=== PATIENT | female | born 1955 | race Caucasian/White ===

== ENCOUNTER → 2017-08-29 | Outpatient (CLI) | payer BC | END | disposition home or self-care (01) | LOC: GMAM 11:03 | PROVIDERS: ATTEND Family Medicine | DX: E03.9 Hypothyroidism, unspecified (principal); E53.8 Deficiency of other specified B group vitamins ==

== ENCOUNTER → 2017-09-08 | Outpatient (CLI) | payer BC | END | disposition home or self-care (01) | LOC: MAMMO 14:20 | PROVIDERS: ATTEND Family Medicine | DX: Z12.31 Encounter for screening mammogram for malignant neoplasm of breast (principal) | CPT/HCPCS: 77063; G0202 ==

== ENCOUNTER → 2017-09-27 | Outpatient (CLI) | payer BC ==
--- NOTE | 2017-09-29 08:07 | US ---
EXAM DESCRIPTION: Breast,Right: Ultrasound CLINICAL HISTORY: 61 yearsFemaleABNORMAL MAMMO. Focal asymmetry posterior third right breast. COMPARISON: Digital 3-D tomosynthesis screening bilateral breast 09/08/2017. TECHNIQUE: Transcutaneous scanning of the posterior third of the upper right breast utilizing two-dimensional and Doppler modes. Scanning performed by the hide cleaner and Dr. Shaffer. FINDINGS: Scanning at the 100 clock position of the right breast, 10 cm from the nipple near the posterior chest wall. Heterogeneous fatty and fibroglandular tissues. Oval-shaped well-defined hypoechoic mass with central echogenicity parallel orientation and mixed posterior features. Central vascularity. Consistent with a lymph node. Dimensions 8.8 x 3.5 mm. No discrete abnormal solid mass or cyst. No parenchymal edema or calcification. No skin thickening. IMPRESSION: BI-RADS CATEGORY: 2 - BENIGN FINDINGS. FOLLOW UP: Return to routine digital bilateral mammographic screening, one year interval from August 2017. The FINDINGS and the follow-up plan were reviewed in person with the patient after the examination. Written communication explaining the IMPRESSION and follow-up will be mailed to the patient and referring care provider. According to the [employer], yearly mammograms are recommended starting at age 40 and continuing as long as a woman is in good health. Any breast change noted on a breast self-exam should be reported promptly to the patient's healthcare provider. Breast MRI is recommended for women with an approximately 20-25% or greater lifetime risk of breast cancer, including women with a strong family history of breast or ovarian cancer and women who have been treated for Hodgkin's disease. A negative mammographic report should not delay tissue diagnosis in patients with significant clinical history or physical findings. Extremely dense breast tissue limits the sensitivity of digital mammography. Electronically signed by: David Shaffer MD 09/29/2017 8:06 AM APRON WORKER
== END ==
LOC: US 14:00
PROVIDERS: ATTEND Family Medicine
DX: R92.8 Other abnormal and inconclusive findings on diagnostic imaging of breast (principal)

== ENCOUNTER → 2018-08-31 | Outpatient (CLI) | payer BC | LOC: LAB.O 09:23 | PROVIDERS: ATTEND Family Medicine | DX: E53.8 Deficiency of other specified B group vitamins (principal); I10 Essential (primary) hypertension; E03.9 Hypothyroidism, unspecified; E78.5 Hyperlipidemia, unspecified; E55.9 Vitamin D deficiency, unspecified ==

== ENCOUNTER 2020-04-12 16:05 | Emergency (ER) | payer BC, OTHER ==
[2020-04-12] MEDS ORDERED: diphenhydrAMINE HCL 25 MG CAP PO ONE (16:15)
[2020-04-12] MEDS ORDERED: predniSONE 20 MG TAB PO ONE (16:15)
[2020-04-12] MEDS: MONTELUKAST 10 MG TAB PO ONE ×3 (16:29→17:36)
--- NOTE | 2020-04-12 19:00 | ED.PDOC ---
History of Present Illness - General Chief Complaint: Allergic Reaction Stated Complaint: scratchy throat,lips tingling Time Seen by Provider: 04/12/20 16:07 Source: patient Exam Limitations: no limitations - History of Present Illness Initial Comments: The patient is a 64-year-old female presented emergency room secondary to a report of she did take some Benadryl at home. Mild shortness of breath.Feeling of mild throat swelling and lip tingling that occurred after she stepped outside this afternoon. Level signs are within normal limits. There is no evidence of any lip or posterior oropharynx swelling. No wheezing. Good air movement. No obvious physical exam findings. Description of symptoms is most consistent with an early allergic response. No rash. Timing/Duration: 1/2 hour Severity: mild Improving Factors: nothing Worsening Factors: nothing Associated Symptoms: cough - Mild, shortness of breath Allergies/Adverse Reactions: Allergies Amoxicillin [From Augmentin] Allergy (Verified 11/02/16 09:59) Clavulanic Acid [From Augmentin] Allergy (Verified 11/02/16 09:59) Codeine Allergy (Verified 04/12/20 16:22) Nitrofurantoin [From Macrodantin] Allergy (Verified 04/12/20 16:22) Sulfa Antibiotics Allergy (Verified 11/02/16 09:59) Home Medications: Ambulatory Orders Thyroid [Theodore Thyroid] 60 mg PO DAILY 11/02/16 predniSONE [Prednisone] 20 mg PO DAILY #3 tab 04/12/20 Review of Systems - Review of Systems Constitutional: States: no symptoms reported EENTM: States: nose congestion, throat swelling Respiratory: States: cough, short of breath Cardiology: States: no symptoms reported Gastrointestinal/Abdominal: States: no symptoms reported Genitourinary: States: no symptoms reported Musculoskeletal: States: no symptoms reported Skin: States: no symptoms reported Neurological: States: no symptoms reported Endocrine: States: no symptoms reported All other Systems: No Change from Baseline Past Medical History (General) - Patient Medical History Hx Stroke: No Hx Congestive Heart Failure: No Hx Thyroid Disease: Yes Hx Diabetes: No Surgical History: no surgical history - Vaccination History Hx Influenza Vaccination: No Hx Pneumococcal Vaccination: No - Social History Hx Tobacco Use: No Family Medical History - Family History Mother Family History: Unknown Living Status: Unknown Physical Exam - Physical Exam General Appearance: Alert, Anxious, Comfortable, No apparent distress Eye Exam: bilateral normal Ears, Nose, Throat: hearing grossly normal, normal pharynx, nasal congestion - Nares are mildly boggy, other - Posterior oropharynx is clear. No obvious edema. No lip swelling. Neck: non-tender, full range of motion, supple Respiratory: lungs clear, normal breath sounds, no respiratory distress, no accessory muscle use Cardiovascular/Chest: normal peripheral pulses, regular rate, rhythm, no edema Peripheral Pulses: radial,right: 2+, radial,left: 2+ Gastrointestinal/Abdominal: non tender, soft Rectal Exam: deferred Back Exam: no CVA tenderness, no vertebral tenderness Extremity: normal range of motion, non-tender, normal inspection, no pedal edema, normal capillary refill Neurologic: forcer maker II-XII nml as tested, alert, normal mood/affect, oriented x 3 Skin Exam: normal color Comments: Vital Signs - 24 hr 04/12/20 04/12/20 04/12/20 16:18 17:08 18:45 Temperature 98.1 F Pulse Rate [ 91 H 83 73 Left Brachial] Respiratory 20 20 20 Rate Blood Pressure 176/110 144/104 160/102 [Left Arm] O2 Sat by Pulse 98 98 98 Oximetry Progress - Progress Progress: 04/12/20 18:58 The patient is 64-year-old female presenting with what appears to be most likely an allergic reaction related to an environmental allergy. She was given a dose of Benadryl and prednisone and Singulair here. She appears to be doing better. I would encourage her to remain indoors for the next few days. She will be written for prednisone 20 mg daily to take in the morning for the next 3 days. Keep Benadryl on hand in case she has another similar reaction. No other significant pathology has been found. She needs to keep routine follow-up with her primary care doctor. ER warnings are given. [email or web address] [id number] Departure - Departure Clinical Impression: Environmental allergies Disposition: Discharge to Home or Self Care Condition: Fair Departure Forms: ED Discharge - Pt. Copy, Patient Portal Self Enrollment Diet: regular diet Activity: increase activity as tolerated Referrals: Myles Dunn MD [Primary Care Provider] - 1-2 Weeks Prescriptions: predniSONE [Prednisone] 20 mg PO DAILY #3 tab Home Medications: Ambulatory Orders Thyroid [Theodore Thyroid] 60 mg PO DAILY 11/02/16 predniSONE [Prednisone] 20 mg PO DAILY #3 tab 04/12/20 Additional Instructions: The patient is 64-year-old female presenting with what appears to be most likely an allergic reaction related to an environmental allergy. She was given a dose of Benadryl and prednisone and Singulair here. She appears to be doing better. I would encourage her to remain indoors for the next few days. She will be written for prednisone 20 mg daily to take in the morning for the next 3 days. Keep Benadryl on hand in case she has another similar reaction. No other significant pathology has been found. She needs to keep routine follow-up with her primary care doctor. ER warnings are given.
[2020-04-12 19:05] VITALS: BP 157/97; TEMP 98.3; O2SAT 95
== END 2020-04-12 19:09 | disposition home or self-care (01) ==
LOC: ER 16:05
DX: T78.49XA Other allergy, initial encounter (principal); Y92.9 Unspecified place or not applicable
CPT/HCPCS: J7512; Q0163

== ENCOUNTER → 2020-11-27 | Outpatient (CLI) | payer MEDICARE | LOC: GMAM 11:34 | PROVIDERS: ATTEND Family Medicine | DX: E53.8 Deficiency of other specified B group vitamins (principal); E03.9 Hypothyroidism, unspecified; E55.9 Vitamin D deficiency, unspecified; E78.2 Mixed hyperlipidemia; R73.09 Other abnormal glucose ==